=== PATIENT | female | born 1990 | race Caucasian/White ===

== ENCOUNTER 2020-09-07 15:34 | Emergency (ER) | payer SELFPAY ==
[~2020-09-07] VITALS: Ht 162.6 cm; Wt 72.7 kg
[~2020-09-07 15:34] MED LIST: ESCI-8 PO; POTA20TA83 PO; TRAZ-252 PO
[2020-09-07 16:04] VITALS: BP 138/83
== END 2020-09-07 15:50 | disposition home or self-care (01) ==
LOC: EDUNIT# 15:34 → EMS 15:41
DX: S40.022A Contusion of left upper arm, initial encounter (principal); S40.021A Contusion of right upper arm, initial encounter; J45.909 Unspecified asthma, uncomplicated; F12.90 Cannabis use, unspecified, uncomplicated; Z88.1 Allergy status to other antibiotic agents; Y35.811A Legal intervention involving manhandling, law enforcement official injured, initial encounter; Y93.89 Activity, other specified; Y92.89 Other specified places as the place of occurrence of the external cause; Y99.8 Other external cause status
CPT/HCPCS: 99283; Z7502